=== PATIENT | male | born 1995 | race African-American/Black ===

== ENCOUNTER 2017-04-03 13:17 | Emergency (ER) | payer MEDICAID ==
[~2017-04-03] VITALS: Ht 182.9 cm; Wt 70.0 kg
[~2017-04-03 13:17] MED LIST: ERYT.5%O RIGHT EYE; OMNI1SUS RIGHT EYE; PERC5TAB12 PO
[2017-04-03 13:18] VITALS: BP 130/64; PULSE 84; RESP 16; TEMP 98.1
[2017-04-03] MEDS ORDERED: ONDANSETRON HCL 4 MG/2 ML VIAL IV PUSH ONE (13:30)
[2017-04-03] MEDS ORDERED: SODIUM CHLOR 0.9% 1000 ML INJ 1,000 ML IV ONE (13:30)
--- NOTE | 2017-04-03 13:31 | PD ---
HPI . Cold/flu symptoms Chief Complaint: GI Complaint Time Seen by Provider: 13:26 Travel History International Travel<30 days: No Contact w/Intl Traveler<30days: No Traveled to known affect area: No History of Present Illness HPI 22-year-old male patient presents emergency department for evaluation of cough, sore throat, nasal congestion, vomiting and diarrhea times one day. Patient is unsure if he has had any fevers. Patient states he only vomited once. He had 2 episodes of diarrhea yesterday. Patient denies any major medical history and doesn't take any daily medication. PFSH Past Medical History Diminished Hearing: No Immunizations Current: Yes Social History Alcohol Use: No Tobacco Use: Yes (ONE DAY CIGARETTE A DAY) Substance Use: Yes (marijuana) Allergies-Medications (Allergen,Severity, Reaction): Coded Allergies: No Known Allergies (Unverified , 02/24/13) Reported Meds & Prescriptions Reported Meds & Active Scripts Active No Active Prescriptions or Reported Medications Review of Systems Except as stated in HPI: all other systems reviewed are Neg Physical Exam Narrative GENERAL: Well-nourished, well-developed 22 year old black male patient in no acute distress. Nontoxic appearing. SKIN: Focused skin assessment warm/dry. HEAD: Normocephalic. Atraumatic. NEUROLOGICAL: Awake and alert. Cranial nerves II through XII intact. Motor and sensory grossly within normal limits. Five out of 5 muscle strength in all muscle groups. Normal speech. EYES: No scleral icterus. No injection or drainage. NECK: Supple, trachea midline. No JVD or lymphadenopathy. CARDIOVASCULAR: Regular rate and rhythm without murmurs, gallops, or rubs. RESPIRATORY: Breath sounds equal bilaterally. No accessory muscle use. GASTROINTESTINAL: Abdomen soft, non-tender, nondistended. MUSCULOSKELETAL: No cyanosis, or edema. BACK: Nontender without obvious deformity. No CVA tenderness. Data Data Last Documented VS Vital Signs Date Time Temp Pulse Resp B/P (MAP) Pulse Ox O2 Delivery O2 Flow Rate FiO2 04/03/17 13:18 98.1 84 16 130/64 (86) Orders Orders Basic Metabolic Panel (Bmp) (04/03/17 13:25) Complete Blood Count With Diff (04/03/17 13:25) Influenzae A/B Antigen (04/03/17 13:25) Urinalysis - C+S If Indicated (04/03/17 13:25) Chest, Pa & Lat (04/03/17 13:25) Iv Access Insert/Monitor (04/03/17 13:25) Ondansetron Inj (Zofran Inj) (04/03/17 13:30) Sodium Chlor 0.9% 1000 Ml Inj (Ns 1000 M (04/03/17 13:30) Labs Laboratory Tests Test 04/03/17 13:50 04/03/17 14:50 White Blood Count 9.1 TH/MM3 Red Blood Count 5.09 MIL/MM3 Hemoglobin 14.4 GM/DL Hematocrit 45.6 % Mean Corpuscular Volume 89.6 FL Mean Corpuscular Hemoglobin 28.2 PG Mean Corpuscular Hemoglobin Concent 31.5 % Red Cell Distribution Width 14.7 % Platelet Count 265 TH/MM3 Mean Platelet Volume 9.1 FL Neutrophils (%) (Auto) 66.0 % Lymphocytes (%) (Auto) 17.4 % Monocytes (%) (Auto) 13.0 % Eosinophils (%) (Auto) 3.0 % Basophils (%) (Auto) 0.6 % Neutrophils # (Auto) 6.0 TH/MM3 Lymphocytes # (Auto) 1.6 TH/MM3 Monocytes # (Auto) 1.2 TH/MM3 Eosinophils # (Auto) 0.3 TH/MM3 Basophils # (Auto) 0.1 TH/MM3 CBC Comment DIFF FINAL Differential Comment Blood Urea Nitrogen 12 MG/DL Creatinine 1.14 MG/DL Random Glucose 94 MG/DL Calcium Level 9.1 MG/DL Sodium Level 135 MEQ/L Potassium Level 3.9 MEQ/L Chloride Level 107 MEQ/L Carbon Dioxide Level 23.1 MEQ/L Anion Gap 5 MEQ/L Estimat Glomerular Filtration Rate 98 ML/MIN Urine Color YELLOW Urine Turbidity CLEAR Urine pH 6.0 Urine Specific [place] 1.032 Urine Protein 30 mg/dL Urine Glucose (UA) NEG mg/dL Urine Ketones NEG mg/dL Urine Occult Blood NEG Urine Nitrite NEG Urine Bilirubin NEG Urine Urobilinogen LESS THAN 2.0 MG/DL Urine Leukocyte Esterase NEG Urine RBC 1 /hpf Urine Squamous Epithelial Cells <1 /hpf Urine Mucus MANY /lpf Microscopic Urinalysis Comment CULT NOT INDICATED MDM Medical Decision Making Medical Screen Exam Complete: Yes Emergency Medical Condition: Yes Differential Diagnosis Differential diagnoses include but not limited to influenza, URI, pharyngitis, gastroenteritis Narrative Course 22-year-old male patient presents emergency department for evaluation of upper respiratory symptoms, 1 episode of vomiting yesterday and 2 episodes of diarrhea yesterday. IV placed and blood work obtained CBC, CMP, and UA, influenza ordered and pending. Chest x-ray ordered and pending. 1 L normal saline bolus, 4 mg IV Zofran given. Blood work is unremarkable, UA shows no acute abnormality and influenza is negative. Chest x-ray shows no acute abnormality. Patient is discharged home with instructions for supportive care, return the emergency Department with any worsening condition but otherwise follow up with primary care. Diagnosis Primary Impression: Viral syndrome Referrals: Primary Care Physician Patient Instructions: General Instructions, Viral Syndrome (ED) Additional Instructions: Please return to emergency department if your symptoms return or worsen. Follow up with your primary care provider. Take ibuprofen or Tylenol as a free pain or fevers. Supportive care, stay hydrated, get enough rest, diet as tolerated. Scripts No Active Prescriptions or Reported Meds Disposition: 01 DISCHARGE HOME Condition: Stable Renee See Apr 03, 2017 13:31
--- NOTE | 2017-04-03 13:58 | RADRPT ---
EXAM DATE/TIME: 04/03/2017 13:34 [facility] COMPARISON: No previous studies available for comparison. INDICATIONS : Cough, flu like symptoms started this morning. MEDICAL HISTORY : None. SURGICAL HISTORY : None. ENCOUNTER: Initial ACUITY: 1 day PAIN SCORE: 8/10 LOCATION: middle chest. FINDINGS: PA and lateral views of the chest demonstrate the lungs to be symmetrically aerated without evidence of mass, infiltrate or effusion. The cardiomediastinal contours are unremarkable. Osseous structure s are intact. CONCLUSION: No acute disease. Ryan Parikh MD on April 03, 2017 at 13:56 Board Certified Radiologist. This report was verified electronically.
[2017-04-03 14:09] LABS: BASOPHIL # 0.1 TH/MM3 (0-0.2); BASOPHIL % 0.6 % (0.0-2.0); EOSINOPHIL # 0.3 TH/MM3 (0-0.4); HEMATOCRIT 45.6 % (39.0-51.0); HEMO FLAGS DIFF FINAL; LYMPH % 17.4 % (9.0-44.0); LYMPHOCYTE # 1.6 TH/MM3 (1.0-4.8); MEAN CELL VOLUME 89.6 FL (80.0-100.0); MEAN CORPUSCULAR HEMOGLOBIN 28.2 PG (27.0-34.0); MEAN CORPUSCULAR HGB CONC 31.5 % (32.0-36.0); PLATELET COUNT 265 TH/MM3 (150-450); RED BLOOD COUNT 5.09 MIL/MM3 (4.50-5.90); RED CELL DISTRIBUTION WIDTH 14.7 % (11.6-17.2); WHITE BLOOD COUNT 9.1 TH/MM3 (4.0-11.0)
[2017-04-03 14:38] LABS: BICARBONATE 23.1 MEQ/L (21.0-32.0); POTASSIUM 3.9 MEQ/L (3.5-5.1)
[2017-04-03 15:14] LABS: BLOOD, URINE NEG (NEG); GLUCOSE,URINE NEG (NEG); KETONE, URINE NEG (NEG); MUCUS URINE MANY /lpf (OCC); NITRITE,URINE NEG (NEG); SQUAMOUS EPITHELIAL CELL URINE <1 /hpf (0-5); URINE COLOR YELLOW (YELLW/STRAW)
[2017-04-03 15:16] LABS: COMMENT (UR) CULT NOT INDICATED; CULTURE IF INDICATED CULT NOT INDICATED
== END 2017-04-03 15:51 | disposition home or self-care (01) ==
LOC: NEPD 13:17
DX: B34.9 Viral infection, unspecified (principal); R11.10 Vomiting, unspecified; R19.7 Diarrhea, unspecified; F17.210 Nicotine dependence, cigarettes, uncomplicated
CPT/HCPCS: 71020; 80048; 81001; 85025; 87804; 96360; 99285; J2405; J7030